=== PATIENT | female | born 1960 | race Caucasian/White ===

== ENCOUNTER 2018-01-16 11:46 | Emergency (ER) | payer BC ==
[~2018-01-16] VITALS: Ht 160 cm; Wt 70.0 kg
[2018-01-16 12:04] VITALS: BP 128/99
== END 2018-01-16 13:20 | disposition home or self-care (01) ==
LOC: ER 11:47
DX: S52.532A Colles' fracture of left radius, initial encounter for closed fracture (principal); Z88.0 Allergy status to penicillin; W01.0XXA Fall on same level from slipping, tripping and stumbling without subsequent striking against object, initial encounter; Y93.89 Activity, other specified; Y92.89 Other specified places as the place of occurrence of the external cause; Y99.8 Other external cause status
CPT/HCPCS: 29125; 73110; 99284

== ENCOUNTER 2018-01-25 13:48 | Outpatient (CLI) | payer BC | END 2018-01-25 14:55 | disposition home or self-care (01) | LOC: ORTHO 13:48 | PROVIDERS: ATTEND Nurse Practitioner Family | DX: S52.502A Unspecified fracture of the lower end of left radius, initial encounter for closed fracture (principal); Z88.0 Allergy status to penicillin; W01.0XXA Fall on same level from slipping, tripping and stumbling without subsequent striking against object, initial encounter | CPT/HCPCS: 99213 ==

== ENCOUNTER 2018-02-15 14:24 | Outpatient (CLI) | payer BC ==
[2018-02-15 14:32] VITALS: BP 119/70
== END 2018-02-15 14:52 | disposition home or self-care (01) ==
LOC: ORTHO 14:24
PROVIDERS: ATTEND Nurse Practitioner Family
DX: S52.532D Colles' fracture of left radius, subsequent encounter for closed fracture with routine healing (principal); Z88.0 Allergy status to penicillin; W01.0XXD Fall on same level from slipping, tripping and stumbling without subsequent striking against object, subsequent encounter
CPT/HCPCS: 73110; 99213

== ENCOUNTER 2018-03-09 14:11 | Outpatient (CLI) | payer BC ==
[2018-03-09 14:18] VITALS: BP 104/67
== END 2018-03-09 14:56 | disposition home or self-care (01) ==
LOC: ORTHO 14:11
PROVIDERS: ATTEND Nurse Practitioner Family
DX: S52.532D Colles' fracture of left radius, subsequent encounter for closed fracture with routine healing (principal); Z88.0 Allergy status to penicillin; X58.XXXD Exposure to other specified factors, subsequent encounter
CPT/HCPCS: 73110; 99213

== ENCOUNTER 2018-07-05 14:03 | Outpatient (CLI) | payer BC ==
[2018-07-05 13:49] VITALS: BP 114/75
== END 2018-07-05 14:45 | disposition home or self-care (01) ==
LOC: ORTHO 14:03
PROVIDERS: ATTEND Nurse Practitioner Family
DX: M18.12 Unilateral primary osteoarthritis of first carpometacarpal joint, left hand (principal); Z88.0 Allergy status to penicillin
CPT/HCPCS: 73110; 99213